=== PATIENT | female | born 1985 | race Caucasian/White ===

== ENCOUNTER 2017-04-07 19:08 | Emergency (ER) | payer MEDICARE, MEDICAID ==
[~2017-04-07 19:08] MED LIST: ADVAIR INH; AMBIEN10 MG PO; AMOXICILLIN500 M2 PO; ARIPIPRAZOLE20 MG PO; ARIPIPRAZOLE30 MG PO; CLINDAMYCIN HC300 M2 PO; CLOBETASOL EMOL15 GM TP; CPAP; ELAVIL50 MG PO; ENDOCET 5-3251 EACH PO; FISH OIL 1,2001 CAP PO; FISH OIL500 M2 PO; FLOMAX0.4 M1 PO; GLIMEPIRIDE2 MG PO; GLIMEPIRIDE4 M1 PO; GLUCOPHAGE XR500 M1 PO; GLUCOPHAGE500 M1 PO; GLUCOPHAGE500 M3 PO; HUMALOG100 UNIT/2 SC; HUMULIN R100 UNITS/ SC; HYDROXYZINE HCL50 MG PO; INVEGA3 MG PO; INVEGA6 MG PO; INVOKANA300 MG PO; LEVAQUIN500 M1 PO; LEVEMIR FL100 UNIT/2 SC; LISINOPRIL2.5 M1 PO; LYRICA50 MG/CAP PO; MELATONIN10 M4 PO; MELATONIN10 M6 PO; METFORMIN HCL500 M3 PO; METFORMIN HCL500 M4 PO; MOBIC7.5 M2 PO; MULTIPLE VITAM1 EAC3 PO; NOVOLOG FL100 UNIT/2 SC; PROPRANOLOL HCL20 M2 PO; SEROQUEL200 M2 PO; TRAMADOL HCL50 M2 PO; TRESIBA FL100 UNIT/1 SC; ULTRAM50 M1 PO; VISTARIL50 MG PO; VITAMIN D35000 UNIT PO; VITAMIN D5000 UNI2 PO; ZALEPLON10 M1 PO; ZOFRAN ODT4 MG PO; ZOFRAN4 M2 PO; ZOLOFT100 M1 PO; sleeping pill
[2017-04-07 22:35] LABS: URINE BILIRUBIN NEGATIVE (NEG); URINE BLOOD NEGATIVE (NEG); URINE GLUCOSE (UA) LARGE (NEG); URINE KETONE NEGATIVE (NEG); URINE LEUKOCYTE ESTERASE NEGATIVE (NEG); URINE NITRITE NEGATIVE (NEG); URINE PROTEIN NEGATIVE (NEG); URINE SPECIFIC GRAVITY 1.005 (1.003-1.030)
[2017-04-07 22:41] LABS: URINE APPEARANCE CLEAR; URINE COLOR YELLOW
[2017-04-24] MEDS ORDERED: LEVSIN-SL0.125 MG PO (11:10)
[2017-07-10] MEDS ORDERED: ZANAFLEX4 M2 PO (08:51)
[2017-07-10] MEDS ORDERED: JARDIANCE25 MG PO (08:51)
[2017-07-10] MEDS ORDERED: ULTRAM50 M1 PO (08:52)
[2017-07-10] MEDS ORDERED: AMITRIPTYLINE H50 M1 PO (08:52)
[2017-07-10] MEDS ORDERED: FISH OIL 1,2001 EAC8 PO (08:53)
[2017-07-27] MEDS ORDERED: HYDROCODON-ACE1 EA16 PO (19:12)
[2017-07-29] MEDS ORDERED: ASPIRIN81 M1 PO (14:19)
[2017-07-29] MEDS ORDERED: IBUPROFEN600 M1 PO (14:20)
== END 2017-04-07 23:28 ==
LOC: EDMED 19:08
PROVIDERS: Nurse Practitioner Family
DX: M54.41 Lumbago with sciatica, right side (principal); E11.9 Type 2 diabetes mellitus without complications; I10 Essential (primary) hypertension; Z79.4 Long term (current) use of insulin; Z79.899 Other long term (current) drug therapy
CPT/HCPCS: J2270; J2360

== ENCOUNTER 2017-04-14 16:22 | Emergency (ER) | payer MEDICARE, MEDICAID ==
[2017-04-14] MEDS ORDERED: CYCLOBENZAPRINE10 M1 PO (16:37)
[2017-04-14] MEDS ORDERED: ACTOS30 M1 PO (16:38)
[2017-04-14] MEDS ORDERED: MOBIC15 M2 PO (16:38)
[2017-04-14] MEDS ORDERED: PALIPERIDONE ER6 MG PO (16:38)
[2017-04-14] MEDS ORDERED: NORCO 5-325 TA1 EACH PO (21:38)
[2017-04-24] MEDS ORDERED: LEVSIN-SL0.125 MG PO (11:10)
[2017-07-10] MEDS ORDERED: ZANAFLEX4 M2 PO (08:51)
[2017-07-10] MEDS ORDERED: JARDIANCE25 MG PO (08:51)
[2017-07-10] MEDS ORDERED: ULTRAM50 M1 PO (08:52)
[2017-07-10] MEDS ORDERED: AMITRIPTYLINE H50 M1 PO (08:52)
[2017-07-10] MEDS ORDERED: FISH OIL 1,2001 EAC8 PO (08:53)
[2017-07-27] MEDS ORDERED: HYDROCODON-ACE1 EA16 PO (19:12)
[2017-07-29] MEDS ORDERED: ASPIRIN81 M1 PO (14:19)
[2017-07-29] MEDS ORDERED: IBUPROFEN600 M1 PO (14:20)
== END 2017-04-14 21:40 ==
LOC: EDMED 16:22
DX: M54.5 Low back pain (principal); G89.29 Other chronic pain; E11.9 Type 2 diabetes mellitus without complications; I10 Essential (primary) hypertension; Z79.4 Long term (current) use of insulin
CPT/HCPCS: J1885; J2360